=== PATIENT | male | born 1955 | race Caucasian/White ===

== ENCOUNTER 2018-09-07 16:42 | Inpatient (IN) | payer MEDICARE, OTHER ==
[2018-09-07] MEDS ORDERED: Albuterol-Ipratrop 3 mg / 0.5 (3 ml) UD INH STA ×2 (17:10→17:17)
[2018-09-07] MEDS ORDERED: Albuterol-Ipratrop 3 mg / 0.5 (3 ml) UD ONE ×2 (17:15→17:23)
--- NOTE | 2018-09-07 17:18 | ED PDOC ---
HPI: General Adult Time Seen by Provider: 09/07/18 17:17 Chief Complaint (Nursing): Shortness Of Breath Chief Complaint (Provider): sob History Per: Patient, Family (63 y/o male h/o asthma/copd here for sob that occurred acutely as he walked to store. STates he forgot his inhaler and symptoms worsened. No fever/cough. States his last episode to this severity was 3 years ago.) Past Medical History Reviewed: Historical Data, Nursing Documentation, Vital Signs Vital Signs: Last Vital Signs Temp 98.6 F 09/07/18 16:51 Pulse 115 H 09/07/18 16:51 Resp 16 09/07/18 17:07 BP 172/88 H 09/07/18 16:51 Pulse Ox 96 09/07/18 17:07 - Medical History PMH: Asthma, COPD, HTN, Hypercholesterolemia - Surgical History Surgical History: Coronary Stent (04/2012) - Family History Family History: States: Unknown Family Hx - Immunization History Hx Influenza Vaccination: Yes Hx Pneumococcal Vaccination: Yes - Home Medications Home Medications: Ambulatory Orders Medication Instructions Recorded Albuterol 2.5 mg INH Q4 10/08/13 Fish Oil 1,000 mg PO DAILY 10/08/13 Oxycodone W/APAP 325 mg-5 mg 1 tab PO BID PRN 10/08/13 Proair Hfa 90 mcg INH QID 10/08/13 Spiriva 18 mcg INH DAILY 10/08/13 Xalatan 2.5 ml 1 drop HS 10/08/13 Ezetimibe [Zetia] 1 tab PO DAILY 04/12/16 Fenofibrate [Triglide] 1 tab PO DAILY 04/12/16 Hydralazine HCl 1 tab PO BID 04/12/16 Rosuvastatin Calcium [Crestor] 1 tab PO DAILY 04/12/16 Valsartan/Hydrochlorothiazide 1 tab PO DAILY 04/12/16 [Valsartan-Hctz 320-25 mg Tab] amLODIPine [Norvasc] 1 tab PO DAILY 04/12/16 - Allergies Allergies/Adverse Reactions: Allergies Allergy/AdvReac Type Severity Reaction Status Date / Time metformin Allergy DIARRHEA Verified 09/07/18 16:48 Review of Systems ROS Statement: Except As Marked, All Systems Reviewed And Found Negative Physical Exam - Reviewed Nursing Documentation Reviewed: Yes Vital Signs Reviewed: Yes - Physical Exam Appears: Positive for: Well, Non-toxic, No Acute Distress Head Exam: Positive for: ATRAUMATIC, NORMAL INSPECTION, NORMOCEPHALIC Skin: Positive for: Normal Color, Warm, DRY Eye Exam: Positive for: EOMI, Normal appearance, PERRL ENT: Positive for: Normal ENT Inspection Neck: Positive for: Normal, Painless ROM Cardiovascular/Chest: Positive for: Regular Rate, Rhythm Respiratory: Positive for: Decreased Breath Sounds, Wheezing Gastrointestinal/Abdominal: Positive for: Normal Exam, Soft Back: Positive for: Normal Inspection Extremity: Positive for: Normal ROM Neurologic/Psych: Positive for: Alert, Oriented - ECG O2 Sat by Pulse Oximetry: 96 - Progress ED Course And Treament: duoneb x 3 doses solumedrol 125 mg iv 1 dose Disposition - Clinical Impression Clinical Impression: Exacerbation of asthma, Bronchitis - Patient ED Disposition Is Patient to be Admitted: Transfer of Care - Disposition Disposition: Transfer of Care Disposition Time: 20:44 Condition: FAIR Patient Signed Over To: Kirstie Vasquez Handoff Comments: PENDING BLOODWORK AND RE-EVALUATION
--- NOTE | 2018-09-07 18:30 | RAD ---
Date of service: 09/07/2018 HISTORY: cough COMPARISON: No prior. FINDINGS: LUNGS: The lungs are well inflated and clear. There are diffuse increased streaky opacities in the lungs. No focal consolidation. PLEURA: No pleural effusions or pneumothorax. CARDIOVASCULAR: The heart is normal in size. No aortic atherosclerotic calcifications present. OSSEOUS STRUCTURES: Within normal limits for the patient's age. VISUALIZED UPPER ABDOMEN: Normal. OTHER FINDINGS: None. IMPRESSION: Increased streaky opacities in the lungs may represent nonspecific atypical/viral pneumonitis. No lobar pneumonia.
[2018-09-07 21:59] LABS: BASO % 0.3 % (0.0-2.0); EOS % 0.3 % (0.0-4.0); HEMOGLOBIN 15.5 g/dL (12.0-18.0); LYMPH # 0.7 K/uL (1.0-4.3); LYMPH % 4.8 % (20.0-40.0); MEAN CELL VOLUME 91.9 fl (80.0-94.0); MEAN CORPUSCULAR HEMOGLOBIN 30.9 pg (27.0-31.0); MEAN CORPUSCULAR HGB CONC 33.6 g/dL (33.0-37.0); MONO # 0.2 K/uL (0.0-0.8); MONO % 1.3 % (0.0-10.0); NEUT # 13.8 K/uL (1.8-7.0); NEUT % 93.3 % (50.0-75.0); PLATELET COUNT 259 K/uL (130-400); RBC 5.03 Mil/uL (4.40-5.90); RED CELL DISTRIBUTION WIDTH 13.8 % (11.5-14.5); WHITE BLOOD COUNT 14.8 K/uL (4.8-10.8)
[2018-09-07 22:15] LABS: ALB/GLOB RATIO 1.3 (1.0-2.1); ALBUMIN 4.3 g/dL (3.5-5.0); ALT/SGPT 37 U/L (21-72); AST/SGOT 39 U/L (17-59); BLOOD UREA NITROGEN 8 mg/dl (9-20); CALCIUM 9.4 mg/dL (8.4-10.2); GFR NON-AFRICAN AMERICAN > 60
[2018-09-07 22:43] LABS: BANDS 2 % (0-2); LYMPHOCYTE 6 % (20-50); MONOCYTE 3 % (0-10); NEUTROPHIL 89 % (42-75); TOTAL CELLS COUNTED 100
[2018-09-07 22:44] LABS: PLATELET ESTIMATE NORMAL (NORMAL); TOXIC GRANULATION PRESENT
[2018-09-07] MEDS ORDERED: Enoxaparin 80 mg Syringe SC STA (22:57)
[2018-09-07] MEDS ORDERED: Nitroglycerin 2% Ointment Foilpak UD TOP STA (22:57)
--- NOTE | 2018-09-07 23:10 | ED PDOC ---
- Laboratory Results Result Diagrams: 09/07/18 21:53 09/07/18 21:53 Lab Results: Troponin I 0.2290 ng/mL (0.00-0.120) H* 09/07/18 21:53 Total Bilirubin 0.3 mg/dl (0.2-1.3) 09/07/18 21:53 AST 39 U/L (17-59) 09/07/18 21:53 ALT 37 U/L (21-72) 09/07/18 21:53 Alkaline Phosphatase 93 U/L (38-126) 09/07/18 21:53 Total Protein 7.6 G/DL (6.3-8.2) 09/07/18 21:53 Albumin 4.3 g/dL (3.5-5.0) 09/07/18 21:53 Globulin 3.3 gm/dL (2.2-3.9) 09/07/18 21:53 Albumin/Globulin Ratio 1.3 (1.0-2.1) 09/07/18 21:53 - ECG O2 Sat by Pulse Oximetry: 96 - Progress ED Course And Treament: Case endorsed to chief writer from Ab[facility] MELENDEZ pending labs and re-eval trop + ASA, lovenox, nitro paste ordered Case discussed with Dr. Alejo, medial service on-call, for admission; recommends consult with cardio on-call Case discussed with Dr. Cochran regarding consult; recommends repeat troponin in am Disposition - Clinical Impression Clinical Impression: ACS (acute coronary syndrome) - POA Present On Arrival: Poor Glycemic Control - Disposition Disposition: Admitted as In-Patient Disposition Time: 23:30 Condition: FAIR
[2018-09-07] MEDS ORDERED: Nitroglycerin 2% Ointment Foilpak UD TOP ONE (23:47)
[2018-09-08 07:20] LABS: HDL CHOLESTEROL 39 MG/DL (30-70)
[2018-09-08 07:33] LABS: LDL CHOLESTEROL 31 mg/dL (0-129)
[2018-09-08] MEDS: GlipiZIDE 5 mg SR Tab PO SCH (08:45)
[2018-09-08] MEDS: Latanoprost 0.005% Opht SOUTION OU SCH ×2 (08:46→18:07)
[2018-09-08] MEDS: Insulin Regular 100 units/ml SC SCH ×4 (08:56→23:00)
[2018-09-08] MEDS ORDERED: Patient's Own Med (Fenofibrate [Triglide] 160 MG) PO SCH (09:00)
[2018-09-08] MEDS ORDERED: GLIMEPIRIDE 1 MG PO SCH (09:00)
[2018-09-08] MEDS ORDERED: Patient's Own Med (Irbesartan/Hydrochlorothiazide [Irbesartan-Hctz 300-12.5 Mg Tb] 1 TAB) PO SCH (09:00)
--- NOTE | 2018-09-08 10:17 | CARD ---
APPROVED REPORT Date of service: 09/07/2018 EKG Measurement Heart [id number] <Conclusion> Sinus tachycardia with occasional premature ventricular complexes Possible Left atrial enlargement Nonspecific ST and T wave abnormality Abnormal ECG
[2018-09-08] MEDS ORDERED: Sodium Chloride 3% for Inhalation 4 ML VIAL.NEB IH PRN (11:25)
--- NOTE | 2018-09-08 11:43 | CP.PCM.CON ---
History of Present Illness - History of Present Illness History of Present Illness: This 63-year-old hypertensive diabetic man with a long history of chronic cigarette use until 2 months back came to the emergency room after developing marked difficulty in breathing. The patient has had COPD and uses bronchodilators. He gives history of having required a coronary stent in 2009 and has required stenting of circulation to his left lower extremity 3 years back according to his . The patient denies having suffered a myocardial infarction or having had congestive cardiac failure. His physical activities are severely curtailed because of his dyspnea on exertion due to COPD. The patient denies any chest pain prior to coming to the emergency room. Physical examination shows a middle-aged man who breathes at 18-20 breaths/min lying virtually flat in bed. He was alert awake coherent and afebrile. His pulse rate was 82 bpm regular and his blood pressure was 138/72 mmHg. His jugular venous pressure was not elevated and there was no edema over his lower extremities. The pedal pulses were feeble but present. His extremities were warm and his nailbeds were pink. There was no central or peripheral cyanosis. There were no carotid bruits. The apex was not palpable. The first and second heart sounds were normal. There was no murmur or gallop. There were no rales. His abdomen was soft and liver and spleen were not palpable. His electrocardiogram showed sinus rhythm with no ST-T changes of myocardial ischemia or Q waves. Within half an hour of onset of his symptoms on arriving in the emergency room his troponin level was 0.229 ng/mL and 8 hours later it was 0.232 nanograms per mL. Rest of his labs were noted. Impression: Atypical chest pain with no EKG evidence of myocardial ischemia and a flat elevation of troponin indicates that this episode did not represent acute coronary syndrome. If the last set of cardiac enzymes does not show a spike the patient may be allo wed to return home and see his hog feeder whom he sees on a regular basis. Past Patient History - Infectious Disease Hx of Infectious Diseases: None - Past Medical History & Family History Past Medical History?: Yes - Past Social History Smoking Status: Heavy Smoker > 10 Cigarettes Daily - CARDIAC Hx Cardiac Disorders: Yes Hx Hypercholesterolemia: Yes Hx Hypertension: Yes - PULMONARY Hx Respiratory Disorders: Yes Hx Asthma: Yes Hx Chronic Obstructive Pulmonary Disease (COPD): Yes - NEUROLOGICAL Hx Neurological Disorder: No - HEENT Hx HEENT Problems: No - RENAL Hx Chronic Kidney Disease: No - ENDOCRINE/METABOLIC Hx Endocrine Disorders: Yes Hx Diabetes Mellitus Type 2: Yes (pre DM) - HEMATOLOGICAL/ONCOLOGICAL Hx Blood Disorders: No Hx AIDS: No Hx Human Immunodeficiency Virus (HIV): No - INTEGUMENTARY Hx Dermatological Problems: No - MUSCULOSKELETAL/RHEUMATOLOGICAL Hx Musculoskeletal Disorders: No Hx Falls: No - GASTROINTESTINAL Hx Gastrointestinal Disorders: No - GENITOURINARY/GYNECOLOGICAL Hx Genitourinary Disorders: No - PSYCHIATRIC Hx Psychophysiologic Disorder: No Hx Substance Use: No - SURGICAL HISTORY Hx Surgeries: Yes Hx Coronary Stent: Yes (04/2012) - ANESTHESIA Hx Anesthesia: Yes Hx Anesthesia Reactions: No Meds Allergies/Adverse Reactions: Allergies Allergy/AdvReac Type Severity Reaction Status Date / Time metformin Allergy DIARRHEA Verified 09/07/18 16:48 - Medications Medications: Current Medications Albuterol/Ipratropium (Duoneb 3 Mg/0.5 Mg (3 Ml) Ud) 3 ml INH RQ6 [facility] Aspirin (Aspirin Chewable) 81 mg PO DAILY [facility] Ezetimibe (Zetia) 10 mg PO DAILY [facility] Last Admin: 09/08/18 08:46 Dose: 10 mg Enoxaparin Sodium (Lovenox) 40 mg SC DAILY [facility]; Protocol Fenofibrate (Tricor) 145 mg PO DAILY [facility] Last Admin: 09/08/18 08:46 Dose: 145 mg Glipizide (Glucotrol Xl) 5 mg PO BRK [facility] Last Admin: 09/08/18 08:45 Dose: 5 mg Hydrochlorothiazide (Microzide) 12.5 mg PO DAILY [facility] Last Admin: 09/08/18 08:48 Dose: 12.5 mg Azithromycin 500 mg/ Sodium (Chloride) 250 mls @ 250 mls/hr IVPB DAILY [facility]; Protocol Insulin Human Regular (Humulin R) 0 units SD ACCU-CHECK [facility]; Protocol Last Admin: 09/08/18 08:56 Dose: 3 units Latanoprost (Xalatan Opht) 1 drop OU DAILY [facility] Losartan Potassium (Cozaar) 100 mg PO DAILY [facility] Last Admin: 09/08/18 08:44 Dose: 100 mg Metoprolol Tartrate (Lopressor) 25 mg PO DAILY [facility] Mirtazapine (Remeron) 15 mg PO DAILY [facility] Last Admin: 09/08/18 08:47 Dose: 15 mg Tiotropium [place] (Spiriva) 18 mcg INH DAILY [facility] Results - Vital Signs Recent Vital Signs: Last Vital Signs Temp 97.9 F 09/08/18 09:00 Pulse 83 09/08/18 09:00 Resp 18 09/08/18 09:00 BP 151/65 H 09/08/18 09:00 Pulse Ox 96 09/08/18 09:00 - Labs Result Diagrams: 09/07/18 21:53 09/07/18 21:53 Labs: Laboratory Results - last 24 hr 09/07/18 09/07/18 09/08/18 21:53 21:53 00:01 WBC 14.8 H RBC 5.03 Hgb 15.5 Hct 46.3 MCV 91.9 MCH 30.9 MCHC 33.6 RDW 13.8 Plt Count 259 MPV 11.0 Neut % (Auto) 93.3 H Lymph % (Auto) 4.8 L [place] % (Auto) 1.3 Eos % (Auto) 0.3 Baso % (Auto) 0.3 Neut # (Auto) 13.8 H Lymph # (Auto) 0.7 L [place] # (Auto) 0.2 Eos # (Auto) 0.0 Baso # (Auto) 0.0 Neutrophils % (Manual) 89 H Band Neutrophils % 2 Lymphocytes % (Manual) 6 L Monocytes % (Manual) 3 Toxic Granulation Present Platelet Estimate Normal Sodium 138 Potassium 4.3 Chloride 97 L Carbon Dioxide 28 Anion Gap 17 BUN 8 L Creatinine 0.8 Est GFR ( Amer) > 60 Est GFR (Non-Af Amer) > 60 POC Glucose (mg/dL) Random Glucose 228 H Calcium 9.4 Total Bilirubin 0.3 AST 39 ALT 37 Alkaline Phosphatase 93 Troponin I 0.2290 H* NT-Pro-B Natriuret Pep 1220 H Total Protein 7.6 Albumin 4.3 Globulin 3.3 Albumin/Globulin Ratio 1.3 Triglycerides Cholesterol LDL Cholesterol Direct HDL Cholesterol 09/08/18 09/08/18 09/08/18 02:40 05:25 06:40 WBC RBC Hgb Hct MCV MCH MCHC RDW Plt Count MPV Neut % (Auto) Lymph % (Auto) [place] % (Auto) Eos % (Auto) Baso % (Auto) Neut # (Auto) Lymph # (Auto) [place] # (Auto) Eos # (Auto) Baso # (Auto) Neutrophils % (Manual) Band Neutrophils % Lymphocytes % (Manual) Monocytes % (Manual) Toxic Granulation Platelet Estimate Sodium Potassium Chloride Carbon Dioxide Anion Gap BUN Creatinine Est GFR ( Amer) Est GFR (Non-Af Amer) POC Glucose (mg/dL) 285 H Random Glucose Calcium Total Bilirubin AST ALT Alkaline Phosphatase Troponin I 0.2320 H* NT-Pro-B Natriuret Pep Total Protein Albumin Globulin Albumin/Globulin Ratio Triglycerides 88 Cholesterol 74 LDL Cholesterol Direct 31 HDL Cholesterol 39
--- NOTE | 2018-09-08 11:44 | CARD ---
APPROVED REPORT Date of service: 09/08/2018 EKG Measurement Heart [id number] <Conclusion> Normal sinus rhythm Nonspecific T wave abnormality Abnormal ECG
[2018-09-08] MEDS: Enoxaparin 40 mg Syringe SC SCH (12:10)
[2018-09-08] MEDS: Tiotropium 18 mcg Cap For Inhalation INH SCH (12:11)
[2018-09-08] MEDS: Albuterol-Ipratrop 3 mg / 0.5 (3 ml) UD INH SCH ×2 (13:34→19:27)
--- NOTE | 2018-09-08 19:30 | HP ---
HISTORY OF PRESENT ILLNESS: Mr. Montejo is a 63-year-old male who was admitted via the emergency room because of sudden onset of shortness of breath on exertion. He had walked to a nearby stall from home and on his way back had difficulty breathing, had to call his who came down and they had to call the ambulance to take him to the hospital because of shortness of breath and he appeared very cyanotic. He denies chest pains or palpitations, but has a past medical history of chronic obstructive pulmonary disease and coronary artery disease status post stent placement. He also has history of hypertension, hyperlipidemia and diabetes mellitus. FAMILY HISTORY: Remarkable for lung cancer in his sister and cardiac disease in his father who is . SOCIAL HISTORY: He quit smoking just 2 months ago according to the . Does not use drugs, does not use alcohol and lives at home with . REVIEW OF SYSTEMS: Remarkable for shortness of breath requiring inhaled albuterol via metered-dose inhaler on a regular basis. PHYSICAL EXAMINATION: GENERAL: The patient is alert and oriented, appears comfortable at present except for complaining about cough. VITAL SIGNS: Blood pressure 172/88 with a pulse of 115, respiratory rate 16. He is afebrile, temperature 98.6 degrees Fahrenheit, O2 sat 96% on nasal cannula oxygen. SKIN: Shows fair turgor. JVP flat. HEENT: Mouth shows fair hygiene. LUNGS: Fair aeration with scattered bilateral rales and wheezing. HEART: Regular. No murmurs or gallops appreciated. ABDOMEN: Soft, nontender, no organomegaly. EXTREMITIES: Show no edema or cyanosis. CENTRAL NERVOUS SYSTEM: Exam grossly intact. LABORATORY DATA: Remarkable for chest x-ray that shows bilateral interstitial lung changes compatible with pneumonia. WBC 14.8, hemoglobin 15.5, platelet count of 259,000. Sodium 138, potassium 4.3, BUN of 8, creatinine 0.8, glucose of 228. AST 39, ALT 37. Troponin 0.229. ProBNP 1220. Triglyceride 88, cholesterol 74, LDL 31, 39. EKG remarkable for sinus tachycardia with occasional premature ventricular complexes, possible left atrial enlargement, and nonspecific ST-T changes. IMPRESSION: Acute exacerbation of chronic obstructive pulmonary disease with pneumonia, elevated troponin, one doubts acute coronary syndrome, but has to be ruled out, hypertension poorly controlled, and history of coronary artery disease in the past. PLAN: Intravenous antibiotics, aerosolized bronchodilators and antitussives p.r.n. We would monitor labs in hospital. Cardiac evaluation already requested. Septic workup to be done. Case discussed at length with the patient and . We will continue therapy as ordered. Discharge plan will depend on the patient's clinical progress. Balbir Alejo MD
[2018-09-09] MEDS: Albuterol-Ipratrop 3 mg / 0.5 (3 ml) UD INH SCH ×4 (01:06→19:42)
[2018-09-09] MEDS: Tiotropium 18 mcg Cap For Inhalation INH SCH (08:53)
[2018-09-09] MEDS: Insulin Regular 100 units/ml SC SCH ×4 (08:53→22:36)
[2018-09-09] MEDS: GlipiZIDE 5 mg SR Tab PO SCH (08:54)
[2018-09-09] MEDS: Enoxaparin 40 mg Syringe SC SCH (08:54)
[2018-09-09] MEDS: Latanoprost 0.005% Opht SOUTION OU SCH (08:55)
[2018-09-09] MEDS: Azithromycin 500 MG in Sodium Chloride 0.9% 250 ML IVPB SCH (08:57)
--- NOTE | 2018-09-09 10:41 | RAD ---
Date of service: 09/09/2018 HISTORY: pneumonia COMPARISON: No prior. TECHNIQUE: Chest PA and lateral FINDINGS: LUNGS: No active pulmonary disease. PLEURA: No significant pleural effusion identified. No pneumothorax apparent. CARDIOVASCULAR: No aortic atherosclerotic calcification present. Normal cardiac size. No pulmonary vascular congestion. OSSEOUS STRUCTURES: No significant abnormalities. VISUALIZED UPPER ABDOMEN: Normal. OTHER FINDINGS: None. IMPRESSION: No active disease.
--- NOTE | 2018-09-09 10:59 | CARD ---
APPROVED REPORT Date of service: 09/08/2018 EXAM: Two-dimensional and M-mode echocardiogram with Doppler and color Doppler. Other Information Quality : AverageRhythm : NSR INDICATION ACS 2D DIMENSIONS IVSd1.00 (0.7-1.1cm)LVDd4.50 (3.9-5.9cm) LVOT Diameter2.14 (1.8-2.4cm)PWd0.76 (0.7-1.1cm) IVSs0.86 (0.8-1.2cm)LVDs3.16 (2.5-4.0cm) FS (%) 29.9 %PWs0.99 (0.8-1.2cm) M-Mode DIMENSIONS Left Atrium (MM)3.76 (2.5-4.0cm)IVSd0.76 (0.7-1.1cm) Aortic Root2.88 (2.2-3.7cm)LVDd5.18 (4.0-5.6cm) Aortic Cusp Exc.1.62 (1.5-2.0cm)PWd0.76 (0.7-1.1cm) IVSs0.88 cmFS (%) 17 % LVDs4.29 (2.0-3.8cm)PWs0.79 cm Aortic Valve AoV Peak Rhiqdedx116.0cm/sAoV VTI25.1cmAO Peak GR.9mmHg LVOT Peak Zkdsyjuc65.0cm/sLVOT VTI17.80cmAO Mean GR.5mmHg PARMJIT (VMAX)1.24ek2XMQ (VTI)1.39cm2 Mitral Valve MV E Poyegpnq85.9cm/sMV DECEL [id number] A Pypxrlck37.8cm/s MV HSM34qbJ/A ratio0.8MVA (PHT)3.10cm2 TDI Lateral E' Peak V6.68cm/sMedial E' Peak V7.66cm/sE/Lateral E'10.8 E/Medial E'9.4 LEFT VENTRICLE The left ventricle is normal size. There is normal left ventricular wall thickness. Left ventricle systolic function is normal. LVEF is 55-60%. There is normal LV segmental wall motion. Transmitral Doppler flow pattern is Grade I-abnormal relaxation pattern. RIGHT VENTRICLE The right ventricle is normal size. There is normal right ventricular wall thickness. The right ventricular systolic function is normal. ATRIA The left atrium size is normal. The right atrium size is normal. AORTIC VALVE The aortic valve is normal in structure. No aortic regurgitation is present. There is no aortic valvular stenosis. MITRAL VALVE The mitral valve is normal in structure. There is no evidence of mitral valve prolapse. There is no mitral valve stenosis. Mitral regurgitation is trace to mild. TRICUSPID VALVE The tricuspid valve is normal in structure. There is no tricuspid valve regurgitation noted. PULMONIC VALVE The pulmonic valve is not well visualized. There is no pulmonic valvular regurgitation. GREAT VESSELS The aortic root is normal in size. The IVC is normal in size and collapses >50% with inspiration. PERICARDIAL EFFUSION The pericardium appears normal. <Conclusion> The left ventricle is normal size. There is normal left ventricular wall thickness. There is normal LV segmental wall motion. Left ventricle systolic function is normal. LVEF is 55-60%. Transmitral Doppler flow pattern is Grade I-abnormal relaxation pattern.
--- NOTE | 2018-09-09 11:30 | CP.PCM.PN ---
Subjective - Date & Time of Evaluation Date of Evaluation: 09/09/18 Time of Evaluation: 11:31 - Subjective Subjective: FEELS BETTER SOB RESOLVED NO CHEST PAINS DENIES COUGH AT BEDSIDE AND CASE WAS DISCUSSED WITH HER AND PT AND THEY UNDERSTAND Objective - Vital Signs/Intake and Output Vital Signs (last 24 hours): Temp Pulse Resp BP Pulse Ox 97.7 F 72 19 152/57 H 94 L 09/09/18 08:38 09/09/18 08:55 09/09/18 08:38 09/09/18 08:55 09/09/18 08:38 - Medications Medications: Current Medications Albuterol/Ipratropium (Duoneb 3 Mg/0.5 Mg (3 Ml) Ud) 3 ml INH RQ6 [facility] Last Admin: 09/09/18 07:53 Dose: 3 ml Aspirin (Aspirin Chewable) 81 mg PO DAILY [facility] Last Admin: 09/09/18 08:55 Dose: 81 mg Ezetimibe (Zetia) 10 mg PO DAILY [facility] Last Admin: 09/09/18 08:55 Dose: 10 mg Enoxaparin Sodium (Lovenox) 40 mg SC DAILY [facility]; Protocol Last Admin: 09/09/18 08:54 Dose: 40 mg Fenofibrate (Tricor) 145 mg PO DAILY [facility] Last Admin: 09/09/18 08:54 Dose: 145 mg Glipizide (Glucotrol Xl) 10 mg PO BID [facility] Hydrochlorothiazide (Microzide) 12.5 mg PO DAILY [facility] Last Admin: 09/09/18 08:54 Dose: 12.5 mg Azithromycin 500 mg/ Sodium (Chloride) 250 mls @ 250 mls/hr IVPB DAILY [facility]; Protocol Last Admin: 09/09/18 08:57 Dose: 250 mls/hr Insulin Human Regular (Humulin R) 0 units SC ACCU-CHECK [facility]; Protocol Last Admin: 09/09/18 08:53 Dose: Not Given Latanoprost (Xalatan Opht) 1 drop OU DAILY [facility] Last Admin: 09/09/18 08:55 Dose: 1 drop Losartan Potassium (Cozaar) 100 mg PO DAILY [facility] Last Admin: 09/09/18 08:54 Dose: 100 mg Metoprolol Tartrate (Lopressor) 25 mg PO DAILY [facility] Last Admin: 09/09/18 08:55 Dose: 25 mg Mirtazapine (Remeron) 15 mg PO DAILY [facility] Last Admin: 09/09/18 08:55 Dose: 15 mg Tiotropium [place] (Spiriva) 18 mcg INH DAILY [facility] Last Admin: 09/09/18 08:53 Dose: 18 mcg - Labs Labs: 09/07/18 21:53 09/07/18 21:53 - Constitutional Appears: No Acute Distress - Head Exam Head Exam: ATRAUMATIC, NORMAL INSPECTION, NORMOCEPHALIC - Eye Exam Eye Exam: EOMI, Normal appearance, PERRL Pupil Exam: NORMAL ACCOMODATION, PERRL - ENT Exam ENT Exam: Mucous Membranes Moist, Normal Exam - Neck Exam Neck Exam: Full ROM, Normal Inspection. absent: Lymphadenopathy - Respiratory Exam Respiratory Exam: Clear to Ausculation Bilateral, Prolonged Expiratory Phase, NORMAL BREATHING PATTERN - Cardiovascular Exam Cardiovascular Exam: REGULAR RHYTHM, +S1, +S2. absent: Murmur - GI/Abdominal Exam GI & Abdominal Exam: Soft, Normal Bowel Sounds. absent: Tenderness - Rectal Exam Rectal Exam: NORMAL INSPECTION - Extremities Exam Extremities Exam: Full ROM, Normal Capillary Refill, Normal Inspection. absent: Joint Swelling, Pedal Edema - Back Exam Back Exam: NORMAL INSPECTION - Neurological Exam Neurological Exam: Alert, Awake, CN II-XII Intact, Normal Gait, Oriented x3 - Psychiatric Exam Psychiatric exam: Normal Affect, Normal Mood - Skin Skin Exam: Dry, Intact, Normal Color, Warm Assessment and Plan - Assessment and Plan (Free Text) Assessment: COPD--IMPROVING ELEVATED TROPONIN--NO EVIDENCE OF ACUTE [place] PULMONARY INFILTERATES/PNEUMONIA--RESOLVED HX OF ASHD DM--BETTER CONTROLLED HTN-STABLE Plan: D/C NTG PASTE REPEAT LABS IN AM INCREASE ACTIVITY D/C HOME IN AM IF STABLE
[2018-09-09] MEDS: GlipiZIDE 10 mg SR Tab PO SCH (17:24)
[2018-09-10] MEDS: Albuterol-Ipratrop 3 mg / 0.5 (3 ml) UD INH SCH ×2 (02:35→08:02)
[2018-09-10 05:06] VITALS: RESP 20
[2018-09-10 07:28] LABS: HEMOGLOBIN 14.9 g/dL (12.0-18.0); MEAN CELL VOLUME 94.4 fl (80.0-94.0); MEAN CORPUSCULAR HEMOGLOBIN 30.9 pg (27.0-31.0); MEAN CORPUSCULAR HGB CONC 32.8 g/dL (33.0-37.0); RBC 4.8 Mil/uL (4.40-5.90); RED CELL DISTRIBUTION WIDTH 14.5 % (11.5-14.5); WHITE BLOOD COUNT 11.9 K/uL (4.8-10.8)
[2018-09-10 07:50] LABS: BLOOD UREA NITROGEN 22 mg/dl (9-20); CALCIUM 8.7 mg/dL (8.4-10.2); GFR NON-AFRICAN AMERICAN > 60
[2018-09-10 08:02] VITALS: BP 146/66; PULSE 78; TEMP 98; O2SAT 98
[2018-09-10] MEDS: GlipiZIDE 10 mg SR Tab PO SCH (08:23)
[2018-09-10] MEDS: Tiotropium 18 mcg Cap For Inhalation INH SCH (08:23)
[2018-09-10] MEDS: Enoxaparin 40 mg Syringe SC SCH (08:24)
[2018-09-10] MEDS: Azithromycin 500 MG in Sodium Chloride 0.9% 250 ML IVPB SCH (08:28)
[2018-09-10] MEDS: Insulin Regular 100 units/ml SC SCH (09:09)
--- NOTE | 2018-09-10 10:25 | CP.PCM.DIS ---
Provider - Provider Date of Admission: 09/07/18 22:57 Attending physician: Balbir Alejo MD Consults: 09/07/18 23:16 Cardiology Consult Stat Comment: Consulting Provider: Santos Cochran V Consulting Physician: Santos Cochran V Reason for Consult: nstemi Time Spent in preparation of Discharge (in minutes): 35 Diagnosis - Discharge Diagnosis (1) COPD exacerbation Status: Acute Priority: High Comment: SHORTNESS OF BREATH RESOLVED WITH THERAPY. HYPOXEMIA RESOLVED. COUGH RESOLVED. AMBULATING WITHOUT ASSISTANCE OR DYSPNEA. WILL D/C HOME ON BRONCHODILATOR RX AND ANTIBIOTICS. DOES NOT NEED HOME 02. CASE DISCUSSED WITH PT AND HIS (2) Pneumonia Status: Acute Priority: Low Comment: RESOLVED WITH IV ANTIBIOTIC RX. WILL GIVE ZPAK X 5 DAYS (3) Diabetes 1.5, managed as type 2 Status: Chronic Priority: Medium Comment: INCREASE GLIPIZIDE TO 10 MG BID. ADVISED DIETARY RESTRICTIONS (4) Dyspnea Status: Acute Comment: IMPROVED WITH RX (5) Hypertension Status: Chronic Priority: Low Comment: STABLE (6) Hyperlipidemia Status: Chronic Priority: Medium (7) Coronary arteriosclerosis Status: Ruled-out Priority: Medium Comment: NO EVIDENCE OF ACUTE CORONARY SYNDROME. TROPONIN ELEVATED BUT STABLE (8) Elevated troponin Status: Acute Hospital Course - Lab Results Lab Results: Micro Results 09/08/18 12:45 Blood-Venous Blood Culture - Preliminary NO GROWTH AFTER 24 HOURS 09/08/18 12:30 Blood-Venous Blood Culture - Preliminary NO GROWTH AFTER 24 HOURS Most Recent Lab Values WBC 11.9 K/uL (4.8-10.8) H 09/10/18 05:50 RBC 4.80 Mil/uL (4.40-5.90) 09/10/18 05:50 Hgb 14.9 g/dL (12.0-18.0) 09/10/18 05:50 Hct 45.3 % (35.0-51.0) 09/10/18 05:50 MCV 94.4 fl (80.0-94.0) H D 09/10/18 05:50 MCH 30.9 pg (27.0-31.0) 09/10/18 05:50 MCHC 32.8 g/dL (33.0-37.0) L 09/10/18 05:50 RDW 14.5 % (11.5-14.5) 09/10/18 05:50 Plt Count 229 K/uL (130-400) 09/10/18 05:50 MPV 11.0 fl (7.2-11.7) 09/07/18 21:53 Neut % (Auto) 93.3 % (50.0-75.0) H 09/07/18 21:53 Lymph % (Auto) 4.8 % (20.0-40.0) L 09/07/18 21:53 [place] % (Auto) 1.3 % (0.0-10.0) 09/07/18 21:53 Eos % (Auto) 0.3 % (0.0-4.0) 09/07/18 21:53 Baso % (Auto) 0.3 % (0.0-2.0) 09/07/18 21:53 Neut # (Auto) 13.8 K/uL (1.8-7.0) H 09/07/18 21:53 Lymph # (Auto) 0.7 K/uL (1.0-4.3) L 09/07/18 21:53 [place] # (Auto) 0.2 K/uL (0.0-0.8) 09/07/18 21:53 Eos # (Auto) 0.0 K/uL (0.0-0.7) 09/07/18 21:53 Baso # (Auto) 0.0 K/uL (0.0-0.2) 09/07/18 21:53 Neutrophils % (Manual) 89 % (42-75) H 09/07/18 21:53 Band Neutrophils % 2 % (0-2) 09/07/18 21:53 Lymphocytes % (Manual) 6 % (20-50) L 09/07/18 21:53 Monocytes % (Manual) 3 % (0-10) 09/07/18 21:53 Toxic Granulation Present 09/07/18 21:53 Platelet Estimate Normal (NORMAL) 09/07/18 21:53 Sodium 141 mmol/l (132-148) 09/10/18 05:50 Potassium 4.5 MMOL/L (3.6-5.0) 09/10/18 05:50 Chloride 97 mmol/L (98-107) L 09/10/18 05:50 Carbon Dioxide 33 mmol/L (22-30) H 09/10/18 05:50 Anion Gap 16 (10-20) 09/10/18 05:50 BUN 22 mg/dl (9-20) H 09/10/18 05:50 Creatinine 1.0 mg/dl (0.8-1.5) 09/10/18 05:50 Est GFR ( Amer) > 60 09/10/18 05:50 Est GFR (Non-Af Amer) > 60 09/10/18 05:50 POC Glucose (mg/dL) 90 mg/dL (65-110) 09/10/18 05:13 Random Glucose 112 mg/dL (75-110) H 09/10/18 05:50 Calcium 8.7 mg/dL (8.4-10.2) 09/10/18 05:50 Total Bilirubin 0.3 mg/dl (0.2-1.3) 09/07/18 21:53 AST 39 U/L (17-59) 09/07/18 21:53 ALT 37 U/L (21-72) 09/07/18 21:53 Alkaline Phosphatase 93 U/L (38-126) 09/07/18 21:53 Troponin I 0.1350 ng/mL (0.00-0.120) H* 09/08/18 14:30 NT-Pro-B Natriuret Pep 1220 pg/ml (0-900) H 09/08/18 00:01 Total Protein 7.6 G/DL (6.3-8.2) 09/07/18 21:53 Albumin 4.3 g/dL (3.5-5.0) 09/07/18 21:53 Globulin 3.3 gm/dL (2.2-3.9) 09/07/18 21:53 Albumin/Globulin Ratio 1.3 (1.0-2.1) 09/07/18 21:53 Triglycerides 88 mg/DL (0-149) 09/08/18 06:40 Cholesterol 74 mg/dL (0-199) 09/08/18 06:40 LDL Cholesterol Direct 31 mg/dL (0-129) 09/08/18 06:40 HDL Cholesterol 39 MG/DL (30-70) 09/08/18 06:40 Mycoplasma pneumon IgM Negative (NEGATIVE) 09/08/18 12:30 - Hospital Course Hospital Course: SOB RESOLVED CLINICALLY STABLE FOR DISCHARGE HOME Discharge Exam - Head Exam Head Exam: ATRAUMATIC, NORMAL INSPECTION, NORMOCEPHALIC - Eye Exam Eye Exam: EOMI, Normal appearance, PERRL Pupil Exam: NORMAL ACCOMODATION, PERRL - GI/Abdominal Exam GI & Abdominal Exam: Normal Bowel Sounds - Rectal Exam Rectal Exam: NORMAL INSPECTION - Neurological Exam Neurological exam: Alert, CN II-XII Intact, Normal Gait, Oriented x3, Reflexes Normal - Psychiatric Exam Psychiatric exam: Normal Affect, Normal Mood - Skin Skin Exam: Dry, Intact, Normal Color, Warm Discharge Plan - Follow Up Plan Condition: FAIR Disposition: HOME/ ROUTINE Instructions: Chest Pain (DC), Exacerbation of COPD (DC) Additional Instructions: follow up with divorce mediator in 1 week follow up with in 1 week Referrals: Carly Meadows MD [Medical Doctor] - Balbir Alejo MD [Staff Provider] -
== END 2018-09-10 12:00 | disposition home or self-care (01) | DRG 190 ==
LOC: H.ER 16:42 → OBSVTOIN 22:57 → H.ERHOLD 22:57 → H.TEL 09-08 03:07
PROVIDERS: ADMIT Internal Medicine Pulmonary Disease; ATTEND Internal Medicine Pulmonary Disease
DX: J44.1 Chronic obstructive pulmonary disease with (acute) exacerbation (principal); J18.9 Pneumonia, unspecified organism; J44.0 Chronic obstructive pulmonary disease with (acute) lower respiratory infection; I25.10 Atherosclerotic heart disease of native coronary artery without angina pectoris; Z95.5 Presence of coronary angioplasty implant and graft; R09.02 Hypoxemia; E78.00 Pure hypercholesterolemia, unspecified; E78.5 Hyperlipidemia, unspecified; I10 Essential (primary) hypertension; Z87.891 Personal history of nicotine dependence; E11.9 Type 2 diabetes mellitus without complications; R79.89 Other specified abnormal findings of blood chemistry